=== PATIENT | female | born 1955 | race Caucasian/White ===

== ENCOUNTER 2018-07-16 23:26 | Emergency (ER) | payer BC, OTHER ==
[~2018-07-16] VITALS: Ht 157.5 cm; Wt 59.0 kg
[~2018-07-16 23:26] MED LIST: CELEXA PO
--- NOTE | 2018-07-16 23:51 | NUR ---
Pt brought in by [id number] with c/o near syncope episode while at home & feeling faint after pt admits to use of edible marijuana. Per EMS, pt was hypotensive around BP 60/28 & given 250 ml NS on the field. Pt has IV 18 gauge placed to Left AC. Pt is alert, oriented x 4. Able to speak in complete sentences. Speech clear. Responsive to verbal + tactile stimuli. at bedside. Respirations even + unlabored. Pt placed on monitor. Safety measures implemented.
[2018-07-17] MEDS ORDERED: ONDANSETRON 4 MG/2 ML VIAL IV ONE
[2018-07-17] MEDS ORDERED: IV NORMAL SALINE 1000 ML BAG IV ONE
[2018-07-17] MEDS ORDERED: ONDANSETRON 4 MG/2 ML VIAL ONE (00:13)
[2018-07-17 00:18] LABS: BASOPHILS % (AUTO) 0.6 % (0.0-2.0); EOSINOPHILS # (AUTO) 0.2 K/uL (0.0-0.7); EOSINOPHILS % (AUTO) 2.8 % (0.0-7.0); HEMATOCRIT 35.9 % (31.2-41.9); HEMOGLOBIN 12.5 g/dL (10.9-14.3); LYMPHOCYTES # (AUTO) 2.1 K/uL (20.0-40.0); LYMPHOCYTES % (AUTO) 30.3 % (20.5-51.5); MEAN CORPUSCULAR HEMOGLOBIN 30.4 uug (24.7-32.8); MEAN CORPUSCULAR HGB CONC 35 g/dL (32.3-35.6); MEAN CORPUSCULAR VOLUME 87.6 fL (75.5-95.3); MONOCYTES # (AUTO) 0.6 K/uL (2.0-10.0); MONOCYTES % (AUTO) 8.9 % (0.0-11.0); NEUTROPHILS % (AUTO) 57.4 % (38.5-71.5); PLATELET COUNT (AUTO) 164 K/uL (179-408); WHITE BLOOD COUNT (AUTO) 7.1 K/uL (3.8-11.8)
[2018-07-17] MEDS ORDERED: LORAZEPAM 2 MG/1 ML VIAL IV ONE (00:30)
[2018-07-17] MEDS ORDERED: LORAZEPAM 2 MG/1 ML VIAL ONE (00:30)
--- NOTE | 2018-07-17 01:02 | NUR ---
IV removed. Catheter intact and site benign. Pressure and 4x4 gauze applied to site. No bleeding noted.
--- NOTE | 2018-07-17 01:05 | NUR ---
Patient discharged to home in stable conditon. Written and verbal after care instructions given. Patient verbalizes understanding of instructions. Pt ambulated out of ER in steady gait with who will drive home. All belongings with pt. VSS. NAD noted.
[2018-07-17 01:28] VITALS: BP 132/78
== END 2018-07-17 01:29 | disposition home or self-care (01) ==
LOC: ER 23:27
DX: R55 Syncope and collapse (principal); F41.8 Other specified anxiety disorders; F12.929 Cannabis use, unspecified with intoxication, unspecified; Z88.8 Allergy status to other drugs, medicaments and biological substances; Z79.899 Other long term (current) drug therapy
CPT/HCPCS: 36415; 80048; 82962; 85025; 93005; 96361; 96374; 96375; 99284; J2060; J2405; A4663; J7030

== ENCOUNTER 2023-06-03 18:56 | Emergency (ER) | payer MEDICARE, BC ==
[~2023-06-03] VITALS: Ht 165.1 cm; Wt 59.0 kg
[2023-06-03] MEDS ORDERED: CHOL10005 PO (19:20)
[2023-06-03] MEDS ORDERED: ASPI81TA31 PO (19:20)
[2023-06-03] MEDS ORDERED: TRAZ-257 PO (19:20)
[2023-06-03] MEDS ORDERED: DULO60CA45 PO (19:20)
[2023-06-03] MEDS ORDERED: SPIR25TA6 PO (19:20)
[2023-06-03] MEDS ORDERED: ROSU20TA2 PO (19:20)
[2023-06-03] MEDS ORDERED: LORA0.5T48 PO (19:21)
[2023-06-03 19:35] LABS: BASOPHILS % (AUTO) 0.5 % (0.0-2.0); EOSINOPHILS # (AUTO) 0.2 K/uL (0.0-0.7); EOSINOPHILS % (AUTO) 3.1 % (0.0-7.0); HEMATOCRIT 34.5 % (31.2-41.9); HEMOGLOBIN 11.4 g/dL (10.9-14.3); LYMPHOCYTES # (AUTO) 2.4 K/uL (0.8-4.8); LYMPHOCYTES % (AUTO) 34.3 % (20.5-51.5); MEAN CORPUSCULAR HGB CONC 33 g/dL (32.3-35.6); MEAN CORPUSCULAR VOLUME 90.7 fL (75.5-95.3); MONOCYTES # (AUTO) 0.6 K/uL (0.1-1.30); MONOCYTES % (AUTO) 9.1 % (0.0-11.0); NEUTROPHILS # (AUTO) 3.7 K/uL (1.8-8.9); PLATELET COUNT (AUTO) 168 K/uL (179-408); RED CELL DISTRIBUTION WIDTH 14.2 % (12.3-17.7)
[2023-06-03 19:40] LABS: CARBON DIOXIDE 28 mmol/L (21-32); CHLORIDE 103 mmol/L (98-107); GLUCOSE 124 mg/dL (74-106); POTASSIUM 3.9 mmol/L (3.5-5.1); SODIUM SERUM 138 mmol/L (136-145); UREA NITROGEN, BLOOD 24 mg/dL (7-18)
[2023-06-03 19:53] LABS: ALANINE AMINOTRANSFERASE 24 U/L (14-59); ALBUMIN 3.3 g/dL (3.4-5.0); ALKALINE PHOSPHATASE 61 U/L (50-136); ASPARTATE AMINOTRANSFERASE 21 U/L (15-37); BILIRUBIN,DIRECT 0.1 mg/dL (0.0-0.2); BILIRUBIN,TOTAL 0.3 mg/dL (0.2-1.0); NT-PRO BNP 83 pg/mL (0-125); TOTAL PROTEIN, SERUM 6.1 g/dL (6.4-8.2)
[2023-06-03 19:55] LABS: DIFFERENTIAL COMMENT 1
[2023-06-03 22:00] VITALS: O2SAT 98
[2023-06-03] MEDS ORDERED: ACETAMINOPHEN 325 MG TABLET PO PRN (22:00)
[2023-06-03] MEDS ORDERED: ASPIRIN 81 MG TAB.CHEW PO ONE (22:00)
[2023-06-03] MEDS ORDERED: ONDANSETRON 4 MG/2 ML VIAL IV PRN (22:00)
[2023-06-03] MEDS ORDERED: REMEDY ESSENTIAL ZINC PASTE 113 GM TP PRN (22:00)
[2023-06-03] MEDS ORDERED: ASPIRIN 81 MG TAB.CHEW ONE (23:15)
[2023-06-04] MEDS ORDERED: DULOXETINE 60 MG CAPSULE.DR PO SCH (09:00)
[2023-06-04] MEDS ORDERED: Medication Not On Formulary EA (Cholecalciferol (Vitamin D3) (Vitamin D3) 1 CAP) PO SCH (09:00)
[2023-06-04] MEDS ORDERED: ASPIRIN 81 MG TAB.CHEW PO SCH (09:00)
[2023-06-04] MEDS ORDERED: Medication Not On Formulary EA (Rosuvastatin Calcium (Crestor) 20 MG) PO SCH (09:00)
[2023-06-04] MEDS ORDERED: METOPROLOL TARTRATE 50 MG TABLET PO SCH (09:00)
[2023-06-04] MEDS ORDERED: TRAZODONE 100 MG TABLET PO SCH (21:00)
== END 2023-06-03 23:50 | disposition left against medical advice (07) ==
LOC: ER 18:57
DX: I20.0 Unstable angina (principal); R07.89 Other chest pain; E78.5 Hyperlipidemia, unspecified; F41.9 Anxiety disorder, unspecified; Z79.899 Other long term (current) drug therapy; Z79.82 Long term (current) use of aspirin; Z88.1 Allergy status to other antibiotic agents
CPT/HCPCS: 36415; 71045; 84484; 85025; 85730; 93005; A4606; A4663